=== PATIENT | female | born 1960 | race Caucasian/White ===

== ENCOUNTER 2020-11-08 09:07 | Emergency (ER) | payer OTHER ==
[~2020-11-08] VITALS: Ht 167.6 cm; Wt 93.0 kg
[~2020-11-08 09:07] MED LIST: PERCOCET 5-3251 EACH PO
[2020-11-08] MEDS ORDERED: DOXYCYCLINE 10100 MG PO (09:42)
[2020-11-08 09:54] VITALS: BP 134/111
== END 2020-11-08 09:54 | disposition home or self-care (01) ==
LOC: M.ERS 09:07
DX: L03.115 Cellulitis of right lower limb (principal); E11.9 Type 2 diabetes mellitus without complications; Z88.5 Allergy status to narcotic agent; Z88.2 Allergy status to sulfonamides; Z98.890 Other specified postprocedural states; Z90.49 Acquired absence of other specified parts of digestive tract; Z90.710 Acquired absence of both cervix and uterus

== ENCOUNTER → 2021-01-21 | Outpatient (CLI) | payer OTHER ==
[~2021-01-21] MED LIST changes: +DOXYCYCLINE 10100 MG PO
== END ==
LOC: M.LAB 13:37
PROVIDERS: ATTEND Podiatrist Foot & Ankle Surgery
DX: Z01.812 Encounter for preprocedural laboratory examination (principal); Z20.822 Contact with and (suspected) exposure to COVID-19